=== PATIENT | male | born 1975 | race Caucasian/White ===

== ENCOUNTER 2020-05-26 17:43 | Emergency (ER) | payer OTHER, MEDICARE ==
[~2020-05-26] VITALS: Ht 172.7 cm; Wt 100.0 kg
--- NOTE | 2020-05-26 18:49 | PHYS DOC ---
Adult General Chief Complaint Chief Complaint: PSYCH EVALUATION HPI HPI Patient is a 45-year-old male patient who presents to the ED today for psych evaluation. EMS reports patient was found in an open field talking about being "a slave of God". Patient arrives in the ED not making sense. (LILY AREVALO APRN) Review of Systems Review of Systems Constitutional: MILIND due to psych mentation Eyes: MILIND due to psych mentation HENT: MILIND due to psych mentation Respiratory:MILIND due to psych mentation Cardiovascular: MILIND due to psych mentation GI: MILIND due to psych mentation : MILIND due to psych mentation Musculoskeletal: MILIND due to psych mentation Integument: MILIND due to psych mentation Neurologic: MILIND due to psych mentation Endocrine: psych evaluation All other systems were reviewed and found to be within normal limits, except as documented in this note. (LILY AREVALO APRN) Physical Exam Physical Exam Constitutional: Well developed, well nourished, no acute distress, non-toxic appearance. [] HENT: Normocephalic, atraumatic, bilateral external ears normal, oropharynx moist, no oral exudates, nose normal. [] Eyes: PERRLA, EOMI, conjunctiva normal, no discharge. [] Neck: Normal range of motion, no tenderness, supple, no stridor. [] Cardiovascular:Heart rate regular rhythm, no murmur [] Lungs & Thorax: Bilateral breath sounds clear to auscultation [] Abdomen: Bowel sounds normal, soft, no tenderness, no masses, no pulsatile masses. [] Skin: Warm, dry, no erythema, no rash. [] Back: No tenderness, no CVA tenderness. [] Extremities: No tenderness, no cyanosis, no clubbing, ROM intact, no edema. [] Neurologic: Alert and oriented X 3, normal motor function, normal sensory function, no focal deficits noted. [] Psychologic: flat affect talking non sensible stuff mostly word salad (LILY AREVALO APRN) EKG EKG [] (LILY AREVALO APRN) Radiology/Procedures Radiology/Procedures [] (LILY AREVALO APRN) Heart Score Risk Factors: Risk Factors: DM, Current or recent (<one month) smoker, HTN, HLP, family hist ory of CAD, obesity. Risk Scores: Risk Factors: DM, Current or recent (<one month) smoker, HTN, HLP, family history of CAD, obesity. (LILY AREVALO APRN) Course & Med Decision Making Course & Med Decision Making Pertinent Labs and Imaging studies reviewed. (See chart for details) This is a 45 male patient who presents to the ED today for psych evaluation. Patient is talking non sensible stuff mostly word salad [address] Paulson (LILY AREVALO APRN) Course & Med Decision Making I received signout from midlevel provider Patient seen and examined by myself. Physical exam grossly benign without any obvious signs of trauma Patient still talking about being the son of God, also having discussions about [employer] and Jedi nolasco. Appears acutely psychotic without any obvious signs of infection or other organic causes Patient calm throughout entirety of his shift continuing to pace room and talk to himself. Patient still does not have capacity to make medical decisions for himself At 0420 hrs. patient attempted to escape facility and ran into ambulance bay. Security and eventually 911 was called to assist in bringing involuntary patient back into emergency department. Situation resolved without need for physical and/or medical intervention, patient appropriately redirected to room for continued hold for inpatient psych placement [address] Valverde as my shift has ended. (CLINT PAULSON DO) Course & Med Decision Making The patient slept most of the shift. He did wake up and drink some water and eat some food. He became restless and was wandering around quite a bit after that. He requested oral medication we tried 5 mg Zyprexa p.o. After an hour this was not working very well the decision was made given the 5 mg IM. This was more effective for the patient. (ALIE MONET DO) Dragon Disclaimer Dragon Disclaimer This electronic medical record was generated, in whole or in part, using a voice recognition dictation system. (LILY AREVALO APRN) Dragon Disclaimer 0600 Care of patient assumed at shift change. Pt is an involuntary commitment and he is awaiting placement. 0729 Pt walked outside and had to be redirected back to the room. pt was given injection of zyprexa as he was becoming more agitated. 1800 care of patient turned over to Dr. Monet at shift change. Patient has been cooperative during day shift today. We checked on him many times. We are waiting for a bed availability at [facility] (KARLI VALVERDE DO) Departure Departure: Impression: Primary Impression: Evaluation by psychiatric service required Additional Impressions: Acute psychosis Hallucinations Schizophrenia Disposition: 05 DC/TRF OTHER TYPE INSTITUTI Condition: STABLE Problem Qualifiers Additional Impressions: Schizophrenia Schizophrenia type: paranoid schizophrenia Qualified Codes: F20.0 - Paranoid schizophrenia LILY AREVALO DIETICIAN May 26, 2020 18:49 CLINT PAULSON DO May 27, 2020 04:36 KARLI VALVERDE DO May 27, 2020 07:30 ALIE MONET DO May 28, 2020 05:57
[2020-05-26 22:26] LABS: BASO # 0.1 x10^3/uL (0.0-0.2); BASO % 1 % (0-3); EOS # 0.1 x10^3/uL (0.0-0.7); EOS % 1 % (0-3); HEMATOCRIT 44.4 % (39.0-53.0); HEMOGLOBIN 14.9 g/dL (13.0-17.5); LYMPH # 2.2 x10^3/uL (1.0-4.8); LYMPH % 25 % (24-48); MEAN CORPUSCULAR HEMOGLOBIN 29 pg (25-35); MEAN CORPUSCULAR HGB CONC 34 g/dL (31-37); MEAN CORPUSCULAR VOLUME 86 fL (79-100); MONO # 0.7 x10^3/uL (0.0-1.1); MONO % 8 % (0-9); NEUT # 5.8 x10^3uL (1.8-7.7); NEUT % 65 % (31-73); PLATELET COUNT 351 x10^3/uL (140-400); RED BLOOD COUNT 5.19 x10^6/uL (4.30-5.70); RED CELL DISTRIBUTION WIDTH 13.5 % (11.5-14.5); WHITE BLOOD COUNT 8.9 x10^3/uL (4.0-11.0)
[2020-05-26 22:33] LABS: BARBITURATES NEG (NEG); BENZODIAZEPINES NEG (NEG); CANNABINOIDS NEG (NEG); COCAINE NEG (NEG); METHADONE NEG (NEG); OPIATES NEG (NEG); PHENCYCLIDINE NEG (NEG)
[2020-05-26 22:35] LABS: ANION GAP 17 (6-14); BLOOD UREA NITROGEN 23 mg/dL (8-26); BUN/CREATININE RATIO 19 (6-20); CARBON DIOXIDE 19 mmol/L (21-32); CHLORIDE 101 mmol/L (98-107); CREATININE 1.2 mg/dL (0.7-1.3); GFR 65.5; GLUCOSE 106 mg/dL (70-99); POTASSIUM 3.6 mmol/L (3.5-5.1); SODIUM 137 mmol/L (136-145)
[2020-05-26 22:37] LABS: AMPHETAMINE/METHAMPHETAMINE NEG (NEG)
[2020-05-26 22:39] LABS: ACETAMIN < 2.0 mcg/mL (10-30); ETHANOL < 10 mg/dL (0-10); SALIC < 2.8 mg/dL (2.8-20.0)
[2020-05-26 22:41] LABS: ALK PHOS 81 U/L (46-116); ALT (SGPT) 71 U/L (16-63); AST (SGOT) 43 U/L (15-37); TOTAL BILIRUBIN 0.8 mg/dL (0.2-1.0); TOTAL PROTEIN 8.5 g/dL (6.4-8.2)
[2020-05-26 22:47] LABS: BILIRUBIN,URINE MOD (NEG); CLARITY,URINE CLEAR; COLOR,URINE AMBER; GLUCOSE,URINE NEG (NEG)
[2020-05-26 22:48] LABS: BACTERIA,URINE 0 /HPF (0-FEW); NITRITE,URINE NEG (NEG); RBC,URINE RARE /HPF (0-2); UROBILINOGEN,URINE 0.2 mg/dL (0.2 mg/dL); WBC,URINE RARE /HPF (0-4)
[2020-05-26 22:51] LABS: ALBUMIN < 0.6 g/dL (3.4-5.0); ALBUMIN/GLOBULIN RATIO 0.1 (1.0-1.7)
[2020-05-27] MEDS ORDERED: OLANZapine IM 10 MG VIAL. IM ONE (05:00)
[2020-05-28] MEDS ORDERED: OLANZapine 2.5 MG TABLET PO ONE (02:45)
[2020-05-28 05:00] VITALS: BP 156/95
== END 2020-05-28 10:13 ==
LOC: ER 17:43
DX: Z13.39 Encounter for screening examination for other mental health and behavioral disorders (principal); F23 Brief psychotic disorder
CPT/HCPCS: 36415; 80053; 80307; 80329; 81001; 83735; 85025; 96372; 99285; G0480; J3490